=== PATIENT | male | born 1960 | race Caucasian/White ===

== ENCOUNTER 2024-07-12 10:57 | Emergency (ER) | payer MEDICAID, SELFPAY ==
[2024-07-12 11:21] VITALS: BP 144/84; PULSE 99; RESP 20; TEMP 36.7; O2SAT 100; BMI 20.7
--- NOTE | 2024-07-12 11:31 | EKG_ITS ---
[facility] Test Date: 2024-07-12 Pat Name: EDINSON WALTON Department: Room: - Gender: Male Senior Oracle Dba: : 1960 Requested By: Mundo Duron Order Number: [id number] Reading MD: Mundo Duron Measurements Intervals Mayo Rate: 96 P: 43 AR: 181 QRS: 57 QRSD: 82 T: 30 QT: 364 QTc: 462 Interpretive Statements SINUS RHYTHM LOW QRS VOLTAGE IN EXTREMITY LEADS [QRS DEFLECTION < 0.5 mV IN LIMB LEADS] SEPTAL MYOCARDIAL INFARCTION , OF INDETERMINATE AGE [40+ ms Q WAVE IN V1/V2] No previous ECG available for comparison /[id number]/[email or web address]/[id number].pdf
--- NOTE | 2024-07-12 11:31 | XR_ITS ---
Examination: Ultrasound right hemithorax Ultrasound left hemithorax Exam date and time: July 12, 2024 12:43 PM Indications: Shortness of breath today Technique And Findings: Sonographic images right and left hemithoraces Minimal bilateral pleural fluid Impression: Minimal bilateral pleural fluid
--- NOTE | 2024-07-12 11:31 | XR_ITS ---
EXAMINATION: XR chest 1V ORDERING PROVIDER: Mundo Bryan NP HISTORY: SOB hx of pleural effusion TECHNIQUE: Single portable AP radiograph of the chest. COMPARISON: None. FINDINGS: Lines and Tubes: None. Lungs: Fibrotic changes. No consolidation. Pleura: No large pneumothorax. Trace blunting left costophrenic angle. Probable right apical pleural scarring. Cardiomediastinal Silhouette: Uncoiled aorta. Soft Tissues/Bones: Old healed distal left clavicular fracture, chronically malaligned. Diffuse osteopenia. IMPRESSION: Pulmonary fibrotic changes with questionable trace left pleural effusion.
--- NOTE | 2024-07-12 11:33 | EDRME_ITS ---
Rapid Medical Screening Exam [facility] Arrival date/time: 07/12/24 10:57 CC: Shortness of breath HPI patient has been short of breath for progressive worsening over the past 3 weeks since his last thoracentesis. Patient has chronic pleural effusions secondary to cirrhosis. Patient also has a distended abdomen and has had multiple paracenteses. Patient denies chest pain and states his left leg is infected . Patient just moved here 3 days ago from [place] where he has his primary care and is currently living with his sister here in [place]. No old records for comparison. Chief Complaint: Shortness of Breath/Dyspnea Time Seen by Provider: 07/12/24 11:31 Vital signs: Vital Signs Temperature 98.1 F 07/12/24 11:21 Pulse Rate 99 07/12/24 11:21 Respiratory Rate 20 07/12/24 11:21 Blood Pressure 144/84 H 07/12/24 11:21 Pulse Oximetry (%) 100 07/12/24 11:21 Oxygen Delivery Method Room Air 07/12/24 11:21
[2024-07-12 12:09] LABS: Basophils % (Auto) 0 % (0-2.5); Eosinophils % (Auto) 0 % (0-10); Hematocrit 27.8 % (41.0-53.0); Immature Granulocytes % (Auto) 0 % (0-0); Immature Granulocytes Auto 0.04 Thou/mm3 (0.00-0.00); Lymphocytes # (Auto) 0.5 Thou/mm3 (1.0-4.8); Lymphocytes % (Auto) 5 % (10-50); Mean Corpuscular HGB Conc 30.9 g/dl (31.0-37.0); Mean Corpuscular Hemoglobin 26.8 pg (25.0-35.0); Mean Corpuscular Volume 87 fL (80-100); Monocytes # (Auto) 0.4 Thou/mm3 (0.0-0.8); Monocytes % (Auto) 4 % (0-12); Neutrophils # (Auto) 10.3 Thou/mm3 (1.8-7.7); Neutrophils % (Auto) 90 % (37-80); Nucleated Red Blood Cell % 0 /100 WBC (0); Platelet Count 130 Thou/mm3 (140-440); RDW Standard Deviation 61.7 fL (35.1-43.9); Red Blood Count 3.21 Miln/mm3 (4.50-5.90); White Blood Count 11.3 Thou/mm3 (3.8-10.6)
[2024-07-12 12:12] LABS: Hemoglobin 8.6 g/dL (13.5-16.0)
[2024-07-12 12:21] LABS: INR 1.2 (0.9-1.3); Prothrombin Time 12.7 Seconds (9.0-12.2)
[2024-07-12 12:29] LABS: B-Type Natriuretic Peptide 43 pg/mL (0-100)
[2024-07-12 12:40] LABS: Alanine Aminotransferase 19 U/L (10-49); Albumin, Serum 3.3 gm/dL (3.4-4.8); Albumin/Globulin Ratio 0.6 (1.2-2.2); Alkaline Phosphatase 118 U/L (46-116); Anion Gap 9 (7-16); Aspartate Amino Transferase 26 U/L (0-34); BUN/Creatinine Ratio 14 Ratio (12-20); Bilirubin,Total 1.9 mg/dL (0.3-1.2); Blood Urea Nitrogen 13 mg/dL (9-23); Calcium (Corrected) 9.6 mg/dL (8.5-10.1); Carbon Dioxide 22.2 mMol/L (20.0-31.0); Chloride 105 mMol/L (98-107); Creatinine (Component) 0.9 mg/dL (0.6-1.3); Estimated Creatinine Clearance 77.1 mL/min (>60); Globulin 5.2 gm/dL (2.3-3.5); Glucose 246 mg/dL (74-106); Magnesium 1.5 mg/dL (1.6-2.6); Osmolality,Calculated 280 (275-295); Potassium 3.9 mMol/L (3.4-5.1); Sodium 136 mMol/L (136-145); Total Protein 8.5 gm/dL (5.7-8.2); Troponin I < 0.020 ng/mL (0.0-0.045); eGFR > 60 See Note
--- NOTE | 2024-07-12 12:51 | XR_ITS ---
Examination: Ultrasound-guided paracentesis Abdominal sonogram limited Date and time of exam: July 16, 2024 1252 hrs. Indications: Cirrhosis, increasing abdominal distention this week Informed consent provided. A timeout was completed verifying correct patient, procedure, site, positioning, and special adequate movement if applicable. Technique: Multiple sonographic images of the abdomen have been obtained. Appropriate area for paracentesis was marked. Local anesthesia is obtained with 1% lidocaine. Yueh catheter is successfully introduced. Findings: Abdominal sonographic images demonstrate sufficient ascitic fluid for paracentesis. After placing the Yueh catheter, 4225 cc of fluid were successfully removed. During and after completion of the procedure the patient appear in satisfactory and stable condition with no complications observed. Estimated blood loss 0 cc Impression: Abdominal ascites Successful ultrasound-guided paracentesis as described above
[2024-07-12 15:22] LABS: LDH (Lactate Dehydrogenase) 245 U/L (120-246)
--- NOTE | 2024-07-12 15:27 | XR_ITS ---
EXAMINATION: US venous doppler LE RT HISTORY: Edema COMPARISON: None. FINDINGS: Castle scale, color doppler, and spectral waveforms of the right lower extremity veins. The imaged veins are unremarkable without evidence of internal thrombus. Spectral Doppler imaging demonstrates normal wave forms. Small amount of intercalating fluid in the subcutaneous soft tissues of the lower leg, probably edema. IMPRESSION: Negative for right lower leg deep venous thrombosis.
--- NOTE | 2024-07-12 15:43 | EDNOTE_ITS ---
ED Skin Abcess FB-RME/HPI General Chief complaint: Shortness of Breath/Dyspnea Stated complaint: SOB Time Seen by Provider: 07/12/24 11:31 Arrival date/time: 07/12/24 10:57 RME / HPI RME / HPI narrative: 07/12/24 10:57 CC: Shortness of breath HPI patient has been short of breath for progressive worsening over the past 3 weeks since his last thoracentesis. Patient has chronic pleural effusions secondary to cirrhosis. Patient also has a distended abdomen and has had multiple paracenteses. Patient denies chest pain and states his left leg is infected . Patient just moved here 3 days ago from [place] where he has his primary care and is currently living with his sister here in [place]. No old records for comparison. DR. GALAN MAIN ED EVALUATION: 64 year old male with past medical history significant for chronic pleural effusions secondary to cirrhosis presents to the Emergency Department accompanied by with complaint of chronic left lower leg wounds for 2 years with multiple deep ulcerations. Patient reports pain on that site. No other symptoms reported at this time. Related Data Allergies Allergy/AdvReac Type Severity Reaction Status Date / Time No Known Allergies Allergy Verified 07/12/24 11:00 Review of Systems Review of Systems Systems Reviewed: All systems reviewed, normal except as documented Narrative Review of Systems: GEN: No fever, no chills, no weight loss EYES: No discharge, no visual changes, no pain HEENT: No ear pain, no congestion, no sore throat PULM: No shortness of breath, no cough, no congestion CV: No chest pain, no dyspnea on exertion, no palpitations GI: No nausea, no vomiting, no diarrhea, no pain, no constipation : No frequency, no urgency and no dysuria MUSC/SKEL: No joint pain, no back pain SKIN: No rash, + chronic left lower leg wounds multiple deep ulcerations PSYCH: No hallucinations, no depression HEME/LYMPH: No easy bleeding or bruising tendencies NEURO: No weakness, no headache Past Medical History Social History SMOKING STATUS: Current every day smoker SUBSTANCE USE: does not use ALCOHOL: Never ED Exam Narrative Physical exam: GENERAL APPEARANCE: alert and oriented x 4, well-developed, well-nourished, no acute distress VITALS: All vitals were reviewed and the pulse ox is 100% on room air, which is normal according to my interpretation. HEENT: Normocephalic, atraumatic; pupils equal, round, reactive to light; EOMI; mucous membranes pink, moist; oropharynx clear NECK: Supple LUNGS: CTABL; no wheezes, no rales, no rhonchi HEART: Regular rate, regular rhythm; normal S1, S2; no murmurs ABDOMEN: non distended; normal BS; soft, no tenderness, no guarding, no rebound; no masses, no organomegaly, no hernia BACK: no CVA tenderness EXTREMITIES: atraumatic; no edema NEUROLOGIC: awake; alert and oriented x4; cranial nerves II-XII grossly intact; no focal sensory or motor deficits PSYCHIATRIC: appropriate mood and affect SKIN: warm, no rashes; there is erythema, edema, and puss to the left lower leg with multiple deep ulcerations Course Course Course Narrative: 1800: Patient was signed out to Dr. Heath. Past medical, surgical, social and family history reviewed. Vitals and home medications reviewed. Results and treatment plan discussed. They will assume the care of the patient at this time and will follow the patient, pending CT of lower extremity and final disposi tion. Quality Measures none Orders Category Date Time Status CT Screening NOW Care 07/12/24 16:14 Completed EKG (ED ONLY) *Do not use* NOW Care 07/12/24 11:[address] lower leg LT w con Stat Exams 07/12/24 16:13 Completed EKG (ED Only) Stat Exams 07/12/24 11:31 Draft US paracentesis abd w/image Stat Exams 07/12/24 12:51 Completed US pleural effusion Stat Exams 07/12/24 11:31 Completed US venous doppler LE LT Stat Exams 07/12/24 15:49 Completed US venous doppler LE RT Stat Exams 07/12/24 15:27 Completed XR chest 1V Stat Exams 07/12/24 11:31 Completed B-Type Natriuretic Peptide Stat Lab 07/12/24 11:45 Completed C-Reactive Protein Stat Lab 07/12/24 11:45 Completed CBC Stat Lab 07/12/24 11:45 Completed Comprehensive Metabolic Panel Stat Lab 07/12/24 11:45 Completed ESR [Sed Rate (ESR)] Stat Lab 07/12/24 11:45 Completed LDH (Lactate Dehydrogenase) Stat Lab 07/12/24 11:45 Completed Magnesium Stat Lab 07/12/24 11:45 Completed Partial Thromboplastin Time Stat Lab 07/12/24 11:45 Completed Prothrombin Time with INR Stat Lab 07/12/24 11:45 Completed Troponin I Stat Lab 07/12/24 11:45 Completed Lidocaine 1% Pf 30 ml [Xylocaine 1% Pf 30 ml] Med 07/12/24 12:47 Discontinued 30 ml .ROUTE .STK-MED ONE Magnesium Sulfate 2 GM Ivpb [Magnesium Sulfate Ivpb] Med 07/12/24 16:12 Discontinued 2 gm in 50 ml IV X1 Morphine Inj Med 07/12/24 15:26 Discontinued 5 mg IVP X1 ONE Ondansetron Inj [Zofran Inj] Med 07/12/24 15:26 Discontinued 4 mg IV X1 ONE Piper/Tazo 3.375 gm Premix [Zosyn] Med 07/12/24 15:26 Discontinued 3.375 gm in 50 ml IV X1 Sodium Chloride 0.9% 1000 ml [Ns] 1,000 ml Med 07/12/24 15:26 Discontinued IV 999 mls/hr Vancomycin Inj 1,000 mg Med 07/12/24 15:26 Discontinued Sodium Chloride 0.9% 250 ml [Ns] 250 ml IV X1 Vancomycin/Ns 1 gm Ivpb 200 ml Med 07/12/24 15:30 Discontinued IV X1 Vital Signs Vital signs: Vital Signs Temperature 98.1 F 07/12/24 11:21 Pulse Rate 99 07/12/24 11:21 Respiratory Rate 20 07/12/24 11:21 Blood Pressure 144/84 H 07/12/24 11:21 Pulse Oximetry (%) 100 07/12/24 11:21 Oxygen Delivery Method Room Air 07/12/24 11:21 Procedures -ED EKG Interpretation #1: Date of EK07/12/24 Time of EK:36 Rate: 96 Interpretation: Interpreted by me Additional EKG comment: sinus rhythm, rate 96, low voltage, no acute ischemic changes Skin / Abscess / Foreign Body MDM Narrative MDM Narrative:: Alia Bonilla am scribing for and in the presence of Dr. Galan. Patient data External records reviewed:: PCP records Clinical information provided by:: patient and spouse Social determinants that could affect healthcare access:: none Patient has the following chronic illnesses:: chronic pleural effusions secondary to cirrhosis How is presenting disease/condition affected by chronic disease/condition?: exacerbated by Evaluation data The following diagnostics were reviewed and interpreted by me:: lab results, radiology exam(s) and EKG tracing(s) (EKG#1: EKG at 1136 hours. Interpreted by me: sinus rhythm, rate 96, low voltage, no acute ischemic changes) Lab and/or radiology exams considered but not ordered:: none Interpretation Summary: Procedure(s): XR chest 1V Accession Number(s): [id number] cc: David Bass MD; Mundo Bryan NP~ EXAMINATION: XR chest 1V ORDERING PROVIDER: Mundo Bryan NP HISTORY: SOB hx of pleural effusion TECHNIQUE: Single portable AP radiograph of the chest. COMPARISON: None. FINDINGS: Lines and Tubes: None. Lungs: Fibrotic changes. No consolidation. Pleura: No large pneumothorax. Trace blunting left costophrenic angle. Probable right apical pleural scarring. Cardiomediastinal Silhouette: Uncoiled aorta. Soft Tissues/Bones: Old healed distal left clavicular fracture, chronically malaligned. Diffuse osteopenia. IMPRESSION: Pulmonary fibrotic changes with questionable trace left pleural effusion. Dictated By: David Bass MD Procedure(s): US pleural effusion Accession Number(s): [id number] cc: Mundo Bryan NP; Ash White MD~ Examination: Ultrasound right hemithorax Ultrasound left hemithorax Exam date and time: July 12, 2024 12:43 PM Indications: Shortness of breath today Technique And Findings: Sonographic images right and left hemithoraces Minimal bilateral pleural fluid Impression: Minimal bilateral pleural fluid Dictated By: Ash White MD Procedure(s): US venous doppler LE RT Accession Number(s): [id number] cc: David Bass MD; NO PRIMARY/FAMILY,PHYSICIAN; Chelsey Galan MD~ EXAMINATION: US venous doppler LE RT HISTORY: Edema COMPARISON: None. FINDINGS: Castle scale, color doppler, and spectral waveforms of the right lower extremity veins. The imaged veins are unremarkable without evidence of internal thrombus. Spectral Doppler imaging demonstrates normal wave forms. Small amount of intercalating fluid in the subcutaneous soft tissues of the lower leg, probably edema. IMPRESSION: Negative for right lower leg deep venous thrombosis. Dictated By: David Bass MD Procedure(s): US venous doppler LE LT Accession Number(s): [id number] cc: David Bass MD; NO PRIMARY/FAMILY,PHYSICIAN; Chelsey Galan MD~ EXAMINATION: US venous doppler LE LT HISTORY: Edema COMPARISON: None. FINDINGS: Castle scale, color doppler, and spectral waveforms of the left lower extremity veins. The imaged veins are unremarkable without evidence of internal thrombus. Spectral Doppler imaging demonstrates normal wave forms. Intercalating fluid in the subcutaneous soft tissues of the left leg, probably representing diffuse edema. Cellulitis could have a similar appearance. IMPRESSION: Negative for left lower extremity deep venous thrombosis. Dictated By: David Bass MD Medications / Prescriptions Medications or Prescriptions considered but not ordered:: none Medication administrations:: Medication Administration History Discontinued Medications Sodium Chloride (Ns) 1,000 mls @ 999 mls/hr IV .Q1H1M ONE Stop: 07/12/24 16:26 Last Infusion: 07/12/24 18:03 Dose: Infused Documented By: Admin: 07/12/24 17:02 Dose: 999 mls/hr Documented By: CS Vancomycin HCl 1,000 mg/ (Sodium Chloride) 250 mls @ 150 mls/hr IV X1 ONE Stop: 07/12/24 17:05 Last Admin: 07/12/24 17:19 Dose: Not Given Documented By: CS Non-Admin Reason: Discontinued Piperacillin/Tazobactam/Dextrose (Zosyn) 3.375 gm in 50 mls @ 100 mls/hr IV X1 ONE Stop: 07/12/24 15:55 Last Infusion: 07/12/24 17:33 Dose: Infused Documented By: Admin: 07/12/24 17:03 Dose: 100 mls/hr Documented By: CS Vancomycin/Sodium Chloride (Vancomycin/Ns 1 Gm Ivpb) 200 mls @ 120 mls/hr IV X1 ONE Stop: 07/12/24 17:09 Last Infusion: 07/12/24 18:44 Dose: Infused Documented By: Admin: 07/12/24 17:03 Dose: 120 mls/hr Documented By: CS Magnesium Sulfate (Magnesium Sulfate Ivpb) 2 gm in 50 mls @ 25 mls/hr IV X1 ONE Stop: 07/12/24 18:11 Last Infusion: 07/12/24 19:53 Dose: Infused Documented By: Admin: 07/12/24 17:23 Dose: 25 mls/hr Documented By: CS Lidocaine HCl (Lidocaine Inj Pf 1% 30 Ml Vial) Confirm Administered Dose 30 ml .ROUTE .STK-MED ONE Stop: 07/12/24 12:48 Last Admin: 07/12/24 18:33 Dose: Not Given Documented By: KM Non-Admin Reason: Cancelled by Provider Morphine Sulfate (Morphine Sulf Inj 10 Mg/Ml Vial) 5 mg IVP X1 ONE Stop: 07/12/24 15:27 Last Admin: 07/12/24 16:55 Dose: 5 mg Documented By: CS Ondansetron HCl (Ondansetron Inj 2 Mg/Ml Inj 2 Ml) 4 mg IV X1 ONE Stop: 07/12/24 15:27 Last Admin: 07/12/24 16:56 Dose: 4 mg Documented By: FANY see above Consultations Consultation(s) initiated? (list below): No Diagnosis Skin/Abscess Differential Diagnosis: urticaria, cellulitis and contact dermatitis Most likely diagnosis given after review of the tests above:: No official diagnoses at this time, still pending diagnostic tests. Patient signout to the client service professional provider. Admission Indicated Admission indicated?: not indicated Explain why admission is indicated or not indicated:: No final disposition plan at this time, still pending diagnostic tests. Patient signout to the client service professional provider. Admission Request Was there a request for admission?: No Disposition Plan Disposition Plan: other (specify) (Patient signout to the client service professional provider, pending CT of lower extremity.) Discharge Plan Plan Patient condition on transfer: Stable Problem List Clinical Impression: Cellulitis, Chronic wound of extremity Patient/Caregiver Discharge Instructions Education Materials: Paracentesis Dc, Thoracentesis Dc Print Language: Swedish
--- NOTE | 2024-07-12 15:49 | XR_ITS ---
EXAMINATION: US venous doppler LE LT HISTORY: Edema COMPARISON: None. FINDINGS: Castle scale, color doppler, and spectral waveforms of the left lower extremity veins. The imaged veins are unremarkable without evidence of internal thrombus. Spectral Doppler imaging demonstrates normal wave forms. Intercalating fluid in the subcutaneous soft tissues of the left leg, probably representing diffuse edema. Cellulitis could have a similar appearance. IMPRESSION: Negative for left lower extremity deep venous thrombosis.
--- NOTE | 2024-07-12 16:13 | XR_ITS ---
Examination: CT left lower leg, without contrast. 2-D sagittal reconstructions. 2-D coronal reconstructions. 3-D reconstructions. Date and time of exam:July 12, 2024 1753 hrs. Indications: Multiple nonhealing ulcers mid anterior lower neck worse over the last year CTDI: vol (mGy):5.04 DLP: (mGycm):384 Technique: Multiple 1.25 mm axial sections of the left lower leg have been obtained. 2-D sagittal and coronal reconstructions have been obtained. 3-D reconstructions have been obtained. Low dose protocols were performed. One or more of the following dose reduction techniques were used; automated exposure control, adjustment of the mA and/or KV according to patient size, use of iterative reconstruction technique. Findings: Advanced knee tricompartment osteoarthritis Periosteal new bone formation involving the anterior and posterior medial lateral shaft of the proximal and mid tibia Tony cortical erosions adjacent to a large soft tissue defect anterior upper tibia sagittal image 41 Diffuse periosteal new bone formation also involving the fibular No soft tissue abscess noted Impression: Extensive chronic osteomyelitis involving the shafts of the tibia and fibula Tony cortical erosions involving the upper anterior to the adjacent to large soft tissue ulcer defect
[2024-07-12 16:25] VITALS: BP 137/80; PULSE 91; RESP 16; O2SAT 99
[2024-07-12 16:51] LABS: C-Reactive Protein 1.1 mg/dL (0.0-0.9)
[2024-07-12] MEDS: MORPHINE SULF INJ 10 MG/ML VIAL 5 MG IVP (16:55)
[2024-07-12] MEDS: ONDANSETRON INJ 2 MG/ML INJ 2 ML 4 MG IV (16:56)
[2024-07-12] MEDS: SODIUM CHLORIDE 0.9% 1000 ML 1,000 ML 999 ML IV (17:02)
[2024-07-12] MEDS: VANCOMYCIN/NS 1 GM IVPB 200 ML IV (17:03)
[2024-07-12] MEDS: PIPER/TAZO 3.375 GM PREMIX 3.375 GM/50 ML BAG IV (17:03)
[2024-07-12 17:05] LABS: Sed Rate (ESR) 76 mm/hr (0-20)
[2024-07-12] MEDS: Magnesium Sulfate 2 GM Ivpb 2 GM/50 ML BAG IV (17:23)
--- NOTE | 2024-07-12 17:29 | ESCONSULT_ITS ---
HPI Consultation - Hospitalist Data of Consult Primary Care Provider: Physician No Primary/Family Consult Narrative History of present illness: Patient is a 64-year-old male with history of liver cirrhosis secondary to hepatitis C, complicated by abdominal ascites status post prior paracentesis, who presented with complaints of shortness of breath, abdominal distention, and lower extremity wounds. Patient has been having worsening over the last 3 weeks prior to admission. He had thoracocentesis 3 weeks prior to presentation. He mentioned having chronic pleural effusions due to his liver cirrhosis. Patient also complained of abdominal distention. He reported multiple paracentesis in the past. No nausea or vomiting. No chest pain. Patient reported chronic wounds on his left leg that has been for the last 2.5 years. He mentioned that his wounds are on and off. He reported no fevers or chills. Patient used fentanyl in the past. He reported no recent IV drug use. He mentioned that he is on methadone use however he missed his methadone clinic appointment. Patient recently moved to [place] 3 days ago and he is living with his sister. He reported no recent alcohol use. He is on methadone. In the ED, his vital signs were stable. Labs showed mild thrombocytopenia. There is mild leukocytosis. Kidney function is stable. Glucose level on BMP was 246. Chest x-ray showed trace left-sided effusion. Ultrasound of the lungs showed minimal bilateral effusions. Ultrasound of the abdomen showed significant amount of ascites status post paracentesis with removal of 4225 cc of ascites fluid. He had ultrasound of the lower extremities that showed no acute DVT. Patient received 1 L of IV fluids and 1 dose of IV vancomycin/Zosyn. Hospitalist team is consulting for further recommendations. cc:: cc: Review of Systems Review of Systems Narrative Review of Systems: General: No fevers, no chills, no weight loss, no sweating, no generalized weakness. Eyes: No changes in vision from baseline. HEENT: No head trauma, no neck trauma, no difficulty swallowing, no nasal congestion, no sore throat. Respiratory: No cough, no sputum production, positive shortness of breath. Cardiovascular: No chest pain, no palpitations, no extremity swelling. Abdomen: Positive abdominal pain, no nausea, no vomiting, no diarrhea, no constipation. Genitourinary: No dysuria, no changes in urine appearance, no changes in urine amount and frequency from baseline Skin: Positive for chronic wounds on the left lower extremities. No new rash reported. Musculoskeletal: No muscle pain, no muscle weakness. Neuro: No weakness, no numbness, no facial deviation, no dizziness. Psych: No current depressive symptoms. No anxiety. Meds Home Medications and Allergies Allergies Allergy/AdvReac Type Severity Reaction Status Date / Time No Known Allergies Allergy Verified 07/12/24 11:00 Exam Vital Signs Temp Pulse Resp BP Pulse Ox O2 Del Method 98.1 F 91 16 137/80 H 99 Room Air 07/12/24 11:21 07/12/24 16:25 07/12/24 16:25 07/12/24 16:25 07/12/24 16:25 07/12/24 16:25 Narrative General: Alert and oriented x3. In no acute distress. Eyes: Pupils are equal and reactive to light bilaterally. HEENT: Atraumatic, normocephalic. No JVD noted. Cardiovascular: Normal S1 and S2. Normal rate and regular rhythm. No murmurs appreciated. No peripheral pitting edema noted. No JVD noted. Respiratory: No respiratory distress. Lungs are clear to auscultation bilaterally. No wheezing or crackles heard. Abdomen: Soft, nontender, slightly distended. Skin: Multiple wounds noted on the left lower extremity with mild purulent discharge. Wounds are chronic appearing with surrounding erythema. Musculoskeletal: No gross injuries except as above. Able to move all 4 extremities. Neuro: Alert and oriented x3. Sensation is intact throughout. Strength is 5/5 and symmetric. No focal neuro deficits. Psych: Normal affect and mood. Results - Hospitalist Labs Diagrams: 07/12/24 11:45 07/12/24 11:45 Labs: Short CBC 07/12/24 Range/Units 11:45 WBC 11.3 H (3.8-10.6) Thou/mm3 Hgb 8.6 L (13.5-16.0) g/dL Hct 27.8 L (41.0-53.0) % Plt Count 130 L (140-440) Thou/mm3 BMP 07/12/24 11:45 Sodium 136 Potassium 3.9 Chloride 105 Carbon Dioxide 22.2 BUN 13 Creatinine 0.9 Glucose 246 H Calcium 9.0 Cardiac Enzymes 07/12/24 Range/Units 11:45 Troponin I < 0.020 (0.0-0.045) ng/mL Liver Function 03/13/25 Range/Units 11:45 Total Bilirubin 1.9 H (0.3-1.2) mg/dL AST 26 (0-34) U/L ALT 19 (10-49) U/L Alkaline Phosphatase 118 H (46-116) U/L Albumin 3.3 L (3.4-4.8) gm/dL Assessment & Plan -Hospitalist Patient Synopsis 64-year-old male with liver cirrhosis who presented with shortness of breath and abdominal distention. He was found to have ascites and left lower extremity wounds. Liver cirrhosis secondary to hepatitis C Abdominal ascites Dyspnea on exertion, resolved after paracentesis History of pleural effusions Status post pleurocentesis with removal of 4225 cc Pleural ultrasound showed minimal fluids Patient had symptomatic improvement and he is on room air Plan: Recommend starting the patient on Lasix+ spironolactone Monitor electrolytes and replete electrolytes as needed Scheduled outpatient paracentesis/pleurocentesis Outpatient follow-up with GI/hepatology Avoid alcohol use Left lower extremity wounds Chronic. Possibly due to prior history of IV drug use. He has elevated ESR but he is afebrile and WBC is mildly elevated. Plan: Discussed with the ED: Will proceed to CT scan of the left lower extremity He received IV vancomycin/Zosyn in the ED I do think that these are chronic wounds and wound care is the most important step Management of pain as needed History of opiate/fentanyl abuse On methadone Patient demonstrates pain medication seeking behavior. He mentioned missing his appointment with the methadone clinic Plan: Resume home methadone once the dose is verified from his clinic Limit opiate use in the setting of history of fentanyl abuse and drug-seeking behavior Management of nausea/vomiting as needed Thrombocytopenia Likely in the setting of liver cirrhosis. No signs of active bleeding. Management as above. Monitor for bleeding. Monitor platelet level. Chronic anemia, normocytic Likely in the setting of liver disease. Trend CBC. Hyperglycemia Likely in the setting of type 2 diabetes mellitus. Will need oral hyperglycemic agents upon discharge. Recommend A1c. Quality Measures Quality Measures none
[2024-07-12 18:29] VITALS: BP 137/80; PULSE 93; RESP 16; TEMP 36.9; O2SAT 96
--- NOTE | 2024-07-12 19:44 | PC.NURSE ---
Pt yelling for nurse repeatedly. Once at the bedside, pt asking for food. Pt offered what we have available in pantry but pt refused stating I don't like them sandwiches, I can only eat spaghetti . Pt informed that his options are only only what we have stocked but he continues to refuse. Pt also asking for something for cough and for pain meds; Dr. Heath is currently in a room with a critical patient so I informed pt that I would let her know when she is available. Pt continuing to shout nurse and help . Pt continues asking for a dinner tray and for pain medication - Pt educated once again that would be informed once available and what his choices are from the pantry. fine sander Rodríguez informed of pt's behavior.
--- NOTE | 2024-07-12 19:58 | PC.NURSE ---
Per quality assurance monitor finalsaira Kinney pt calling the vest front presser asking for pain meds. Pt once again educated on process of medication administration.
--- NOTE | 2024-07-12 20:11 | PC.NURSE ---
Pt called bowling or skating front desk clerk 2 more times asking for pain medication. After leaving pt's room, pt screamed CUNT and BITCH , witnessed by ANMOL Brandon - security informed in case pt's behavior escalates.
--- NOTE | 2024-07-12 20:17 | PC.NURSE ---
Called hospitalist to see the plan for this pt. Dr. Echols came to see pt during day shift and placed a consult note. Spoke to night hospitalist team, was informed pt not being admitted.
--- NOTE | 2024-07-12 20:44 | PC.NURSE ---
Dr. Heath spoke with pt, notified him that he is being discharged. Pt yelling and cursing - security is at the bedside.
[2024-07-12 21:29] VITALS: PULSE 82; RESP 20; O2SAT 95
--- NOTE | 2024-07-12 21:34 | PD.EDADDENDU ---
Emergency Room Addendum Addendum Narrative: 1800: Care assumed from Dr. Galan the previous shift emergency physician. Past medical, surgical, social and family history reviewed. I will assume the care of the patient at this time and will follow the patient, pending possible admission. Please refer to the emergency department record for history and examination from initial visit. Physical exam by me shows patient under no acute distress at this time. 2133: Patient seen by hospitalist. Discharged. MD Attestation MD Attestation Scribe Attestation: I, Garcia Cooley, am scribing for and in the presence of Dr. Heath. Provider Notation: Although this document has been carefully reviewed, there may still be some phonetic and other typographical errors. These errors are purely grammatical due to imperfections in the software program and should not be construed in any way to compromise the substance of the patient's medical care during this visit.
== END 2024-07-12 21:25 | disposition home or self-care (01) ==
PROVIDERS: Registered Nurse General Practice; Emergency Provider Emergency Medicine
DX: K74.60 Unspecified cirrhosis of liver (principal); R18.8 Other ascites; L03.116 Cellulitis of left lower limb; L97.829 Non-pressure chronic ulcer of other part of left lower leg with unspecified severity; J84.10 Pulmonary fibrosis, unspecified; J90 Pleural effusion, not elsewhere classified; R60.0 Localized edema; F17.200 Nicotine dependence, unspecified, uncomplicated
CPT/HCPCS: 49083; 36415; 71045; 73701; 76999; 80053; 80307; 81001; 83615; 83735; 83880; 84484; 85025; 85610; 85652; 85730; 86140; 87070; 87205; 93005; 93970; 93971; 96365; 96366; 99285; A4649; C1729; J2270; J2405; J2543; J3370; J3475; J7030; Q9967